=== PATIENT | male | born 1995 | race Caucasian/White ===

== ENCOUNTER 2017-03-13 21:50 | Emergency (ER) | payer OTHER ==
[~2017-03-13] VITALS: Ht 180.3 cm; Wt 72.6 kg
--- NOTE | 2017-03-14 01:12 | NUR ---
CALLED FOR PT NO ANSWER LWBT
== END 2017-03-14 01:17 | disposition home or self-care (01) ==
LOC: ER 21:51
DX: Z53.21 Procedure and treatment not carried out due to patient leaving prior to being seen by health care provider (principal)
CPT/HCPCS: A4663